=== PATIENT | female | born 1945 | race Caucasian/White ===

== ENCOUNTER 2024-01-15 11:53 | Outpatient (CLI) | payer MEDICARE, OTHER | END 2024-01-15 11:54 | disposition home or self-care (01) | LOC: CSHMAMMO 11:53 | PROVIDERS: ATTEND Internal Medicine Rheumatology | DX: Z12.31 Encounter for screening mammogram for malignant neoplasm of breast (principal); M81.0 Age-related osteoporosis without current pathological fracture; M85.88 Other specified disorders of bone density and structure, other site; Z80.3 Family history of malignant neoplasm of breast | CPT/HCPCS: 77063; 77067; 77080 ==